=== PATIENT | male | born 1980 | race Two or more races ===

== ENCOUNTER 2021-04-28 19:36 | Emergency (ER) | payer BC, OTHER ==
[~2021-04-28] VITALS: Ht 165.1 cm; Wt 83.9 kg
[2021-04-28 19:45] VITALS: BP 163/88
== END 2021-04-28 23:28 | disposition left against medical advice (07) ==
LOC: ER 19:39
DX: R07.89 Other chest pain (principal); Z53.21 Procedure and treatment not carried out due to patient leaving prior to being seen by health care provider